=== PATIENT | female | born 2005 | race Caucasian/White ===

== ENCOUNTER 2023-03-21 16:43 | Emergency (ER) | payer SELFPAY ==
[~2023-03-21] VITALS: Ht 157.5 cm; Wt 63.5 kg
[~2023-03-21 16:43] MED LIST: ALBU.083IS; ALBU.083IS IH; ALBUIS; AMOX50SU PO; CEPH250SUA PO; CEPH500 PO; CODACEE120 PO; Crutch1 EACH MISC; IBUP100S PO; LORTAB 10 MG-3473 ML PO; Melatonin1 MG; NYST100TC TOP; PRED15SY PO; PSEU9.4L PO; RXANTBENOT AU; RXCODACESY PO; RXPROMSY PO; SULF10OPSA OU; SULTRISS PO; Septra Suspens100 ML PO; [UNRECOGNIZED DRUG - REMARK]
[2023-03-21 18:00] VITALS: BP 125/77
[2023-03-21] MEDS ORDERED: AMOCLA875 PO (18:21)
== END 2023-03-21 18:30 | disposition home or self-care (01) ==
LOC: ER 16:43
DX: J32.8 Other chronic sinusitis (principal); J06.9 Acute upper respiratory infection, unspecified
CPT/HCPCS: 99283; A9270

== ENCOUNTER 2024-08-02 07:56 | Emergency (ER) | payer OTHER ==
[~2024-08-02] VITALS: Ht 157.5 cm; Wt 83.5 kg
[~2024-08-02 07:56] MED LIST changes: +AMOCLA875 PO
[2024-08-02 08:36] LABS: Source, Urine Clean Catch
[2024-08-02] MEDS ORDERED: NS 1,000 ML IV SCH (08:40)
[2024-08-02 08:42] LABS: Appearance, Urine Hazy (Clear); Bilirubin, Urine Neg (Neg); Blood, Urine 4+ (Neg); Color, Urine Yellow (P-Yellow); Glucose Qualitative, Urine Neg (Neg); Ketones, Urine 2+ (Neg); Leukocyte Esterase, Urine 2+ (Neg); Nitrite, Urine Neg (Neg); Protein, Urine 2+ (Neg); Specific Gravity, Urine 1.015 (1.003-1.022); Urobilinogen, Urine NORM (Normal)
[2024-08-02 08:55] LABS: BASOPHILS ABSOLUTE AUTO 0.07 K/mm3 (0.00-0.23); BASOPHILS PERCENT AUTO 1 % (0-2); EOSINOPHILS ABSOLUTE AUTO 0.35 K/mm3 (0.00-0.68); EOSINOPHILS PERCENT AUTO 3 % (0-6); Hematocrit 41.5 % (33.0-51.0); Hemoglobin 14.2 g/dL (11.5-16.0); IMMATURE GRAN ABSOLUTE AUTO 0.03 K/mm3 (0.00-0.10); IMMATURE GRAN PERCENT AUTO 0 % (0-1); LYMPHOCYTES PERCENT AUTO 16 % (21-46); MONOCYTES ABSOLUTE AUTO 0.91 K/mm3 (0.16-1.47); MONOCYTES PERCENT AUTO 9 % (4-13); Mean Corpuscular HGB 31.1 pg (26.0-34.0); Mean Corpuscular HGB Conc 34.2 g/dL (31.5-36.5); Mean Corpuscular Volume 91 fL (80-100); Mean Platelet Volume 11.4 fL (9.1-12.4); NEUTROPHILS ABSOLUTE AUTO 7.35 K/mm3 (1.96-9.15); NEUTROPHILS PERCENT AUTO 71 % (41-73); Platelet Count 213 K/mm3 (150-400); RDW Coefficient Variation 11.9 % (11.7-14.2); RDW Standard Deviation 39.8 fL (35.1-46.3); Red Blood Cell Count 4.57 M/mm3 (3.80-5.20); White Blood Cell Count 10.41 K/mm3 (4.00-11.30)
[2024-08-02 09:13] LABS: Albumin/Globulin Ratio 1.1 (0.8-1.8); Bilirubin, Total 1.2 mg/dL (0.1-1.0); Calcium, Blood 8.8 mg/dL (8.5-10.1); Creatinine, Blood 0.77 mg/dL (0.40-1.00); Globulin, Blood 3.5 g/dL (2.2-4.0); Potassium, Blood 3.7 mmol/L (3.5-5.5); Total Protein, Blood 7.5 g/dL (6.4-8.2)
[2024-08-02] MEDS ORDERED: Ketorolac Tromethamine 15mg Vial IV ONE (09:30)
[2024-08-02 09:47] LABS: Bacteria Many /hpf; Mucus Heavy (0-Heavy); Red Blood Cells, Urine 25-50 /hpf (0-2); Squamous Epithelial Cells Many /hpf (Few); White Blood Cells, Urine 50-100 /hpf (0-5)
[2024-08-02 09:49] LABS: Amorphous Mod (0-Heavy)
[2024-08-02 09:50] LABS: Transitional Epithelial Cells Few /hpf (0-Rare)
[2024-08-02 10:15] LABS: Source, Urine Clean Catch
[2024-08-02 10:42] LABS: Appearance, Urine Clear (Clear); Bilirubin, Urine Neg (Neg); Blood, Urine 2+ (Neg); Glucose Qualitative, Urine Neg (Neg); Ketones, Urine 2+ (Neg); Leukocyte Esterase, Urine Neg (Neg); Nitrite, Urine Neg (Neg); Protein, Urine 1+ (Neg); Urobilinogen, Urine NORM (Normal)
[2024-08-02 11:39] LABS: Color, Urine Pale Yellow (P-Yellow)
[2024-08-02 11:51] LABS: White Blood Cells, Urine 25-50 /hpf (0-5)
[2024-08-02 11:53] LABS: Amorphous Light (0-Heavy); Bacteria Many /hpf; Mucus Light (0-Heavy); Squamous Epithelial Cells Few /hpf (Few)
[2024-08-02 11:54] LABS: Transitional Epithelial Cells Rare /hpf (0-Rare)
[2024-08-02 14:12] VITALS: BP 126/77
[2024-08-02] MEDS ORDERED: CEPH500 PO (14:17)
== END 2024-08-02 14:18 | disposition home or self-care (01) ==
LOC: ER 07:56
PROVIDERS: Emergency Medicine; Physician Assistant
DX: N39.0 Urinary tract infection, site not specified (principal); Z59.89 Other problems related to housing and economic circumstances
CPT/HCPCS: 74177; 80053; 81001; 81025; 85025; 87077; 87086; 87186; 96374-59; 99284-25; J1885; J7030; Q9967